=== PATIENT | male | born 1950 | race African-American/Black ===

== ENCOUNTER 2019-03-01 08:58 | Inpatient (IN) | payer MEDICARE ==
[~2019-03-01] VITALS: Ht 172.7 cm; Wt 92.0 kg
[2019-03-01] MEDS ORDERED: SODIUM CHLORIDE 0.9% 100 ML ONE ×2 (09:09→09:43)
[2019-03-01] MEDS ORDERED: IOVERSOL 350 MG/ML 100 ML VIAL ONE ×2 (09:09→09:43)
[2019-03-01] MEDS ORDERED: LOSA25TA41 PO (09:15)
[2019-03-01] MEDS ORDERED: CARV12 PO (09:15)
[2019-03-01] MEDS ORDERED: ATOR40TA28 PO (09:15)
[2019-03-01] MEDS ORDERED: FURO80 PO (09:15)
[2019-03-01] MEDS ORDERED: HYDR25TA84 PO (09:15)
[2019-03-01] MEDS ORDERED: PANT40TA25 PO (09:15)
[2019-03-01] MEDS ORDERED: WARF3TAB29 PO (09:15)
[2019-03-01] MEDS ORDERED: MEGE400O4 PO (09:15)
[2019-03-01] MEDS ORDERED: KDUR10 PO (09:15)
[2019-03-01] MEDS ORDERED: MULT-248 PO (09:15)
[2019-03-01 09:20] LABS: BASOPHILS % (AUTO) 0.6 % (0.0-2.0); EOSINOPHILS % (AUTO) 1.2 % (1.0-6.0); HEMATOCRIT 45.7 % (41-53); HEMOGLOBIN 14.1 g/dL (13.5-17.5); LYMPHOCYTES # (AUTO) 1.8 K/uL (1.0-4.8); LYMPHOCYTES % (AUTO) 14.7 % (22.0-44.0); MEAN CORPUSCULAR HEMOGLOBIN 26.3 pg (26.0-34.0); MEAN CORPUSCULAR HGB CONC 30.8 G/dL (31.0-37.0); MEAN CORPUSCULAR VOLUME 85 fL (80-100); MONOCYTES # (AUTO) 0.5 K/uL (0.1-1.0); MONOCYTES % (AUTO) 4.2 % (2.0-9.0); NEUTROPHILS # (AUTO) 9.6 K/uL (1.8-7.7); NEUTROPHILS % (AUTO) 79.3 % (40.0-70.0); PLATELET COUNT (AUTO) 481 K/uL (150-450); RED BLOOD CELL COUNT(AUTO) 5.35 MIL/uL (4.50-5.90); RED CELL DISTRIBUTION WIDTH 18.4 % (11.5-14.5)
[2019-03-01 09:30] LABS: CALCIUM, TOTAL 9.4 mg/dL (8.8-10.5); CREATININE 1.96 mg/dL (0.60-1.30); INR 1.3 (0.9-1.1); POTASSIUM 4.1 mmol/L (3.5-5.1); PROTHROMBIN TIME 13.9 SEC (9.4-11.6)
[2019-03-01 09:36] LABS: ALBUMIN 2.7 g/dL (3.4-5.0); BILIRUBIN,TOTAL 0.6 mg/dL (0.1-1.0); TOTAL PROTEIN, SERUM 6.8 g/dL (6.4-8.2)
[2019-03-01] MEDS ORDERED: METOPROLOL TARTRATE 5 MG/5 ML VIAL ONE (12:24)
[2019-03-01] MEDS ORDERED: METOPROLOL TARTRATE 5 MG/5 ML VIAL IVP ONE (12:30)
[2019-03-01] MEDS ORDERED: ONDANSETRON HCL 4 MG/2 ML VIAL IVP PRN (13:00)
[2019-03-01] MEDS ORDERED: 0.9% SODIUM CHLORIDE 10 ML SYRINGE IVP PRN (13:00)
[2019-03-01] MEDS ORDERED: ACETAMINOPHEN 325 MG TABLET PO PRN (13:00)
[2019-03-01 15:54] VITALS: BP 152/113
[2019-03-01 19:30] VITALS: BP 151/108
[2019-03-01 20:36] LABS: CHOL/HDL RATIO 2.8 (4.2-7.3)
[2019-03-01] MEDS: DEXTROSE 5%-0.45% SODIUM CHL 1,000 ML IV SCH (22:28)
[2019-03-01 23:19] LABS: GLUCOMETER DEV NAME(LOC) 5N.1; GLUCOSE,POINT OF CARE 116 MG/DL (70-110)
[2019-03-02] VITALS (7 sets, daily range): BP systolic 119–144; BP diastolic 72–102
[2019-03-02 06:34] LABS: GLUCOMETER DEV NAME(LOC) 5N.1; GLUCOSE,POINT OF CARE 136 MG/DL (70-110)
[2019-03-02 09:06] LABS: BASOPHILS % (AUTO) 0.3 % (0.0-2.0); EOSINOPHILS % (AUTO) 0.1 % (1.0-6.0); HEMATOCRIT 48.2 % (41-53); HEMOGLOBIN 15.1 g/dL (13.5-17.5); LYMPHOCYTES # (AUTO) 2.1 K/uL (1.0-4.8); LYMPHOCYTES % (AUTO) 8.8 % (22.0-44.0); MEAN CORPUSCULAR HEMOGLOBIN 26.3 pg (26.0-34.0); MEAN CORPUSCULAR HGB CONC 31.3 G/dL (31.0-37.0); MEAN CORPUSCULAR VOLUME 84 fL (80-100); MONOCYTES # (AUTO) 1.2 K/uL (0.1-1.0); MONOCYTES % (AUTO) 4.9 % (2.0-9.0); NEUTROPHILS # (AUTO) 20.7 K/uL (1.8-7.7); PLATELET COUNT (AUTO) 458 K/uL (150-450); RED BLOOD CELL COUNT(AUTO) 5.74 MIL/uL (4.50-5.90); RED CELL DISTRIBUTION WIDTH 18.2 % (11.5-14.5)
[2019-03-02 09:08] LABS: NEUTROPHILS % (AUTO) 85.9 % (40.0-70.0)
[2019-03-02 09:15] LABS: CALCIUM, TOTAL 9.7 mg/dL (8.8-10.5); CREATININE 2.9 mg/dL (0.60-1.30)
[2019-03-02 09:25] LABS: ALBUMIN 2.5 g/dL (3.4-5.0); BILIRUBIN,TOTAL 0.6 mg/dL (0.1-1.0); TOTAL PROTEIN, SERUM 6.9 g/dL (6.4-8.2)
[2019-03-02] MEDS: DEXTROSE 5%-0.45% SODIUM CHL 1,000 ML IV SCH (10:53)
[2019-03-02] MEDS: ASPIRIN 81 MG CHEWABLE TABLET NG SCH (16:15)
[2019-03-02 17:44] LABS: CHOL/HDL RATIO 3.2 (4.2-7.3); THYROID STIMULATING HORMONE 2.42 uIU/mL (0.36-3.74)
[2019-03-02 18:17] LABS: CHOL/HDL RATIO 2.9 (4.2-7.3); THYROID STIMULATING HORMONE 3.37 uIU/mL (0.36-3.74)
[2019-03-02 18:32] LABS: HEMOGLOBIN A1C 5.8 % (4.5-6.2)
[2019-03-02 19:44] LABS: GLUCOMETER DEV NAME(LOC) 5N.1; GLUCOSE,POINT OF CARE 115 MG/DL (70-110)
[2019-03-03] MEDS: DEXTROSE 5%-0.45% SODIUM CHL 1,000 ML IV SCH ×2 (00:51→16:15)
[2019-03-03 04:18] VITALS: BP 117/72
[2019-03-03 05:50] LABS: GLUCOMETER DEV NAME(LOC) 5N.2; GLUCOSE,POINT OF CARE 100 MG/DL (70-110)
[2019-03-03 07:34] VITALS: BP 111/73
[2019-03-03] MEDS ORDERED: ASPIRIN 81 MG CHEWABLE TABLET PO SCH (09:00)
[2019-03-03] MEDS: ASPIRIN 81 MG CHEWABLE TABLET NG SCH (09:32)
[2019-03-03 11:04] VITALS: BP 118/76
[2019-03-03 11:18] LABS: GLUCOMETER DEV NAME(LOC) 5N.2; GLUCOSE,POINT OF CARE 125 MG/DL (70-110)
[2019-03-03] MEDS ORDERED: DEXTROSE 50%-WATER 25 GM/50 ML SYRINGE IVP PRN (12:30)
[2019-03-03 15:03] VITALS: BP 122/78
[2019-03-03] MEDS ORDERED: HEPARIN SODIUM,PORCINE 5,000 UNITS/ML VIAL SQ SCH (16:00)
[2019-03-03 17:39] LABS: GLUCOMETER DEV NAME(LOC) 5N.2; GLUCOSE,POINT OF CARE 108 MG/DL (70-110)
[2019-03-03] MEDS: FAMOTIDINE 10 MG/ML 2 ML VIAL IVP SCH (19:51)
[2019-03-03 20:00] VITALS: BP 112/73
[2019-03-03 20:24] LABS: GLUCOMETER DEV NAME(LOC) 5N.2; GLUCOSE,POINT OF CARE 107 MG/DL (70-110)
[2019-03-04] VITALS (7 sets, daily range): BP systolic 119–138; BP diastolic 56–94
[2019-03-04] MEDS: DEXTROSE 5%-0.45% SODIUM CHL 1,000 ML IV SCH ×2 (06:20→19:45)
[2019-03-04 06:29] LABS: GLUCOMETER DEV NAME(LOC) 5N.1; GLUCOSE,POINT OF CARE 119 MG/DL (70-110)
[2019-03-04] MEDS: ASPIRIN 81 MG CHEWABLE TABLET NG SCH (08:21)
[2019-03-04] MEDS: FAMOTIDINE 10 MG/ML 2 ML VIAL IVP SCH ×2 (08:21→19:42)
[2019-03-04 11:25] LABS: GLUCOMETER DEV NAME(LOC) 5N.1; GLUCOSE,POINT OF CARE 137 MG/DL (70-110)
[2019-03-04 15:36] LABS: CALCIUM, TOTAL 8.8 mg/dL (8.8-10.5); CREATININE 2.01 mg/dL (0.60-1.30); POTASSIUM 4.1 mmol/L (3.5-5.1)
[2019-03-04 15:40] LABS: BILIRUBIN,TOTAL 0.4 mg/dL (0.1-1.0); TOTAL PROTEIN, SERUM 5.8 g/dL (6.4-8.2)
[2019-03-04 15:58] LABS: BASOPHILS % (AUTO) 0.5 % (0.0-2.0); EOSINOPHILS % (AUTO) 1.1 % (1.0-6.0); HEMOGLOBIN 12.5 g/dL (13.5-17.5); LYMPHOCYTES # (AUTO) 1.7 K/uL (1.0-4.8); LYMPHOCYTES % (AUTO) 12.9 % (22.0-44.0); MEAN CORPUSCULAR HEMOGLOBIN 26.5 pg (26.0-34.0); MEAN CORPUSCULAR HGB CONC 31.1 G/dL (31.0-37.0); MEAN CORPUSCULAR VOLUME 85 fL (80-100); MONOCYTES # (AUTO) 0.9 K/uL (0.1-1.0); MONOCYTES % (AUTO) 6.6 % (2.0-9.0); NEUTROPHILS # (AUTO) 10.4 K/uL (1.8-7.7); NEUTROPHILS % (AUTO) 78.9 % (40.0-70.0); PLATELET COUNT (AUTO) 300 K/uL (150-450); RED CELL DISTRIBUTION WIDTH 18.5 % (11.5-14.5)
[2019-03-04 17:39] LABS: GLUCOMETER DEV NAME(LOC) 5N.1; GLUCOSE,POINT OF CARE 95 MG/DL (70-110)
[2019-03-05 00:09] LABS: GLUCOMETER DEV NAME(LOC) 5N.1; GLUCOSE,POINT OF CARE 128 MG/DL (70-110)
[2019-03-05 03:30] VITALS: BP 126/80
[2019-03-05 05:38] LABS: BASOPHILS % (AUTO) 0.3 % (0.0-2.0); EOSINOPHILS % (AUTO) 1.2 % (1.0-6.0); HEMATOCRIT 39.9 % (41-53); HEMOGLOBIN 12.4 g/dL (13.5-17.5); LYMPHOCYTES # (AUTO) 1.1 K/uL (1.0-4.8); LYMPHOCYTES % (AUTO) 7.8 % (22.0-44.0); MEAN CORPUSCULAR HEMOGLOBIN 26.7 pg (26.0-34.0); MEAN CORPUSCULAR VOLUME 86 fL (80-100); MONOCYTES # (AUTO) 0.9 K/uL (0.1-1.0); MONOCYTES % (AUTO) 6.5 % (2.0-9.0); NEUTROPHILS # (AUTO) 11.7 K/uL (1.8-7.7); NEUTROPHILS % (AUTO) 84.2 % (40.0-70.0); PLATELET COUNT (AUTO) 302 K/uL (150-450); RED BLOOD CELL COUNT(AUTO) 4.62 MIL/uL (4.50-5.90); RED CELL DISTRIBUTION WIDTH 18.2 % (11.5-14.5)
[2019-03-05 05:52] LABS: BILIRUBIN,TOTAL 0.3 mg/dL (0.1-1.0); CALCIUM, TOTAL 8.6 mg/dL (8.8-10.5); CREATININE 1.86 mg/dL (0.60-1.30); TOTAL PROTEIN, SERUM 5.7 g/dL (6.4-8.2)
[2019-03-05 06:19] LABS: GLUCOMETER DEV NAME(LOC) 5N.1; GLUCOSE,POINT OF CARE 127 MG/DL (70-110)
[2019-03-05 07:00] VITALS: BP 119/74
[2019-03-05] MEDS ORDERED: BISACODYL 10 MG RECTAL RECTAL SUPPOSITORY PR PRN (07:45)
[2019-03-05] MEDS ORDERED: MORPHINE SULFATE 2 MG/ML SYRINGE IVP PRN (07:45)
[2019-03-05] MEDS ORDERED: MAGNESIUM HYDROXIDE SUSPENSION 30 ML UDCUP NG PRN (07:45)
[2019-03-05] MEDS ORDERED: ONDANSETRON HCL 4 MG/2 ML VIAL IVP PRN (07:45)
[2019-03-05] MEDS ORDERED: IPRATROPIUM BROMIDE 0.5 MG/2.5 ML NEB SOLUTION NEB PRN (07:45)
[2019-03-05] MEDS ORDERED: ALBUTEROL SULFATE 2.5 MG/0.5 ML NEB SOLUTION NEB PRN (07:45)
[2019-03-05] MEDS ORDERED: CefTRIAXone 1 GM/DEXTROSE 50 ML IV SCH (08:00)
[2019-03-05] MEDS: ASPIRIN 81 MG CHEWABLE TABLET NG SCH (08:33)
[2019-03-05] MEDS: FAMOTIDINE 10 MG/ML 2 ML VIAL IVP SCH (08:37)
[2019-03-05] MEDS: DEXTROSE 5%-0.45% SODIUM CHL 1,000 ML IV SCH (08:39)
[2019-03-05] MEDS ORDERED: DOCUSATE SODIUM 100 MG CAPSULE NG SCH (09:00)
[2019-03-05 11:28] VITALS: BP 114/71
[2019-03-05] MEDS: INSULIN LISPRO 100 UNITS/ML SQ PRN ×2 (11:40→17:00)
[2019-03-05 15:50] VITALS: BP 140/95
[2019-03-05] MEDS ORDERED: ATORVASTATIN CALCIUM 40 MG TABLET NG SCH (21:00)
[2019-03-05 21:17] LABS: GLUCOMETER DEV NAME(LOC) 5N.1; GLUCOSE,POINT OF CARE 108 MG/DL (70-110)
[2019-03-05 21:17] LABS: GLUCOMETER DEV NAME(LOC) 5N.1; GLUCOSE,POINT OF CARE 101 MG/DL (70-110)
== END 2019-03-05 18:30 | DRG 64 ==
LOC: EMS 09:00 → EDBD 09:00 → 5N 14:10
PROVIDERS: ADMIT Hospitalist; ATTEND Hospitalist
DX: I63.512 Cerebral infarction due to unspecified occlusion or stenosis of left middle cerebral artery (principal); E43 Unspecified severe protein-calorie malnutrition; G81.91 Hemiplegia, unspecified affecting right dominant side; N17.9 Acute kidney failure, unspecified; I13.0 Hypertensive heart and chronic kidney disease with heart failure and stage 1 through stage 4 chronic kidney disease, or unspecified chronic kidney disease; I50.20 Unspecified systolic (congestive) heart failure; R47.01 Aphasia; E78.5 Hyperlipidemia, unspecified; I48.0 Paroxysmal atrial fibrillation; N18.9 Chronic kidney disease, unspecified; D72.829 Elevated white blood cell count, unspecified; E11.22 Type 2 diabetes mellitus with diabetic chronic kidney disease; I25.5 Ischemic cardiomyopathy; R29.810 Facial weakness; Z66 Do not resuscitate; F41.9 Anxiety disorder, unspecified; Z79.899 Other long term (current) drug therapy; Z95.0 Presence of cardiac pacemaker; Z79.01 Long term (current) use of anticoagulants; Z79.84 Long term (current) use of oral hypoglycemic drugs; Z68.30 Body mass index [BMI] 30.0-30.9, adult
CPT/HCPCS: 70450; 70496; 74018; 76770; 82948; 83036; 84443; 86850; 86900; 86901; 87081; 92526; 92610; 93005; 93306; 93880; 96372; 96374; 97162; 97530; 99291; G0378; J0696; J1644; J3490; J7050